=== PATIENT | female | born 1955 | race Caucasian/White ===

== ENCOUNTER 2019-07-21 13:37 | Inpatient (IN) | payer OTHER ==
[~2019-07-21 13:37] MED LIST: Iopamidol-370 76% 500 ML 1 ML ONE
[2019-07-21 14:12] LABS: #Basophils 0.1 thou/uL (0.0-0.2); #Eosinphils 0.2 thou/uL (0.0-0.7); #Lymphocytes 2.6 thou/uL (1.20-3.40); #Monocytes 0.7 thou/uL (0.11-0.59); #Neutrophils 4.2 thou/uL (1.40-6.50); %Basophils 1.3 % (0.0-1.0); %Lymphocytes 33.3 % (21.0-51.0); %Monocytes 8.7 % (0.0-10.0); %Neutrophils 53.7 % (42.0-75.0); Hemoglobin 17.8 g/dL (12.0-16.0); Mean Corpuscular HGB CONC 32.2 g/dL (32.0-36.0); Mean Corpuscular Hemoglobin 32.8 pg (27.0-31.0); Mean Platelet Volume 7.9 fL (7.4-10.4); Platelet Count 267 thou/uL (130-400); RBC Distribution Width 11.9 % (11.5-14.5); Red Blood Cell (RBC) Count 5.43 mill/uL (4.20-5.40); White Blood Cell (WBC) Count 7.8 thou/uL (4.8-10.8)
--- NOTE | 2019-07-21 14:17 | RAD ---
Exam: Chest one view HISTORY:Chest pain Comparison: None FINDINGS: Cardiac silhouette: Normal Aorta: Atherosclerosis of the aorta Pulmonary vessels: Normal Costophrenic angles: Clear LUNGS: Hyperinflation. Chronic changes. No masses or consolidation. Pneumothorax: None Osseous abnormalities: None IMPRESSION: 1. Atherosclerosis 2. Hyperinflation with chronic lung parenchymal changes.
[2019-07-21] MEDS ORDERED: Magnesium 2 GM/50 ML BAG (IN WATER) ONE (14:26)
[2019-07-21] MEDS ORDERED: methylPREDNISolone Sod Succ/PF 125 MG/2 ML VIAL ONE (14:26)
[2019-07-21 14:34] LABS: ALT (SGPT) 15 U/L (8-55); AST (SGOT) 19 U/L (5-34); Albumin 4.8 g/dL (3.4-4.8); Alkaline Phosphatase 102 U/L (40-110); Anion Gap 13 mmol/L (10-20); BUN (Urea Nitrogen) 6 mg/dL (9.8-20.1); Bilirubin, Total 0.7 mg/dL (0.2-1.2); CK (CPK) 132 U/L (29-168); Calc. Creatinine Clearance 0 mL/min (70-130); Calcium 9.8 mg/dL (7.8-10.44); Carbon Dioxide 29 mmol/L (23-31); Chloride 96 mmol/L (98-107); Estimated GFR-MDRD 82; Globulin 3.3 g/dL (2.4-3.5); Glucose 123 mg/dL (80-115); Potassium 3.9 mmol/L (3.5-5.1); Protein, Total 8.1 g/dL (6.0-8.3); Sodium 134 mmol/L (136-145)
--- NOTE | 2019-07-21 15:26 | PDOC.FPRHP ---
Addendum entered and electronically signed by Sherice Mckeon MD 07/21/19 20:07 : A/P: Lung Incidentalomas: Patient noted to have 6 & 7mm lung nodules in RUL and a possible R lower bronchial mass. on CTA of chest. Recommend repeat CT in ~3 months per radiology for close monitoring. Will inform patient of these findings prior to d/c to ensure adequate follow-up and consider pulm referral for this as well. Original Note: - History of Present Illness Chief Complaint: racing heart History of Present Illness: 63 yo F with a PMH notable for asthma vs. COPD not on O2 at home who presented to the ER per the recs of an outside facility for tachycardia noted while getting routine bloodwork ordered by her PCP. Patient reports she was told to go to the ER yesterday after the facility noted her HR was 186. However, she decided to wait until today to come to [facility] for evaluation. Reports her palpitations lasted ~20 minutes yesterday before subsiding on their own with rest but states she has had similar episodes before and has never been evaluated for it. Reports a chronic productive cough that has not been any worse recently and states her "O2 always runs low." Denied any SOB, fever/chills , mylagias, recent sick contacts, N/V/D or chest pain. No recurrent palpitations since episode yesterday. ED Course: Duonebs x2, 125 mg methylprednisolone, 2g Magnesium Sulfate, 1L NS - Allergies/Adverse Reactions Allergies Allergy/AdvReac Type Severity Reaction Status Date / Time No Known Allergies Allergy Verified 07/21/19 22:22 - Home Medications Medication Instructions Recorded Confirmed Type Albuterol Sulfate [Albuterol 0.083 mg NEB Q4HR PRN 07/21/19 07/21/19 History Sulfate Neb] Cyanocobalamin (Vitamin B-12) 500 mcg PO DAILY 07/21/19 07/21/19 History [Vitamin B-12] Levocetirizine Dihydrochloride 5 mg PO DAILY 07/21/19 07/21/19 History [Xyzal] Magnesium 200 mg PO DAILY 07/21/19 07/21/19 History Zinc 50 mg PO DAILY 07/21/19 07/21/19 History - History PMHx: COPD vs. asthma PSHx: Hysterectomy w/ bladder suspension, tonsillectomy, ex lap s/p SAB FHx: brother with a fib Social: Former tobacco use, 1 ppd for many years. Recently quit ~1 month ago and starting vaping. Denies drug use or heavy EtOH use. who lives alone in [place]. - Review of Systems General: denies: fever/chills, fatigue Eyes: denies: eye pain, vision changes ENT: reports: other (no sore throat). denies: nasal congestion Respiratory: reports: cough. denies: shortness of breath Cardiovascular: denies: chest pain, palpitation, edema Gastrointestinal: denies: nausea, vomiting, diarrhea Genitourinary: denies: incontinence, dysuria Skin: denies: rashes, itching Musculoskeletal: denies: swelling, arthritis/arthralgias Neurological: denies: syncope, weakness Psychological: denies: anxiety, depression - Vital signs BP: 130/76 Pulse: 96 Resp: 12 O2 sat: 91 on 1.5L Oxygen via NC Wt 52 kg - Physical Exam Constitutional: NAD, awake, alert and oriented, well developed HEENT: normocephalic and atraumatic, conjunctiva clear, grossly normal vision, grossly normal hearing, MMM, oropharynx clear Neck: supple, FROM Heart: RRR, normal S1/S2, no murmurs/rubs/gallops, pulses present, no edema Lungs: no respiratory distress, no retractions, other (diffuse end expiratory wheezing throughout with mild rhonchi on inspiration more prominent in upper lung valle) Abdomen: bowel sounds present, no masses/distention Musculoskeletal: normal structure, ROM grossly normal, other (digital clubbing noted in B/L hands) Neurological: no focal deficit, CN II-XII intact (grossly) Skin: no rash/lesions, good turgor Heme/Lymphatic: no unusual bruising or bleeding, no purpura, no petechia, no LAD Psychiatric: normal mood and affect, good judgment and insight, intact recent and remote memory FMR H&P: Results - Labs Result Diagrams: 07/21/19 13:55 07/21/19 13:55 Lab results: WBC 7.8 thou/uL (4.8-10.8) 07/21/19 13:55 Hgb 17.8 g/dL (12.0-16.0) H 07/21/19 13:55 Hct 55.3 % (36.0-47.0) H 07/21/19 13:55 MCV 102.0 fL (78.0-98.0) H 07/21/19 13:55 Plt Count 267 thou/uL (130-400) 07/21/19 13:55 Neutrophils % 53.7 % (42.0-75.0) 07/21/19 13:55 Sodium 134 mmol/L (136-145) L 07/21/19 13:55 Potassium 3.9 mmol/L (3.5-5.1) 07/21/19 13:55 Chloride 96 mmol/L (98-107) L 07/21/19 13:55 Carbon Dioxide 29 mmol/L (23-31) 07/21/19 13:55 BUN 6 mg/dL (9.8-20.1) L 07/21/19 13:55 Creatinine 0.72 mg/dL (0.6-1.1) 07/21/19 13:55 Glucose 123 mg/dL (80-115) H 07/21/19 13:55 Calcium 9.8 mg/dL (7.8-10.44) 07/21/19 13:55 Total Bilirubin 0.7 mg/dL (0.2-1.2) 07/21/19 13:55 AST 19 U/L (5-34) 07/21/19 13:55 ALT 15 U/L (8-55) 07/21/19 13:55 Alkaline Phosphatase 102 U/L (40-110) 07/21/19 13:55 Creatine Kinase 132 U/L (29-168) 07/21/19 13:55 Serum Total Protein 8.1 g/dL (6.0-8.3) 07/21/19 13:55 Albumin 4.8 g/dL (3.4-4.8) 07/21/19 13:55 - EKG Interpretation EKG: NSR at 96 bpm - Radiology Interpretation Chest x-ray Status: image reviewed by me, report reviewed by me (hyperinflation) Additional comment: Hyperinflation, chronic changes. No masses or consolidation. CT scan - chest Status: image reviewed by me, report reviewed by me (no PE; opacification of RLL bronchi, mass cannot be excluded; 6 & 7mm nodules in RUL; recommend repeat scan in 3 months for close monitoring) FMR H&P: A/P - Problem List (1) COPD exacerbation Current Visit: Yes Status: Acute Priority: High Code(s): J44.1 - CHRONIC OBSTRUCTIVE PULMONARY DISEASE W (ACUTE) EXACERBATION (2) Acute respiratory failure with hypoxia Current Visit: Yes Status: Acute Code(s): J96.01 - ACUTE RESPIRATORY FAILURE WITH HYPOXIA (3) Tobacco abuse Current Visit: Yes Status: Chronic Code(s): Z72.0 - TOBACCO USE (4) COPD (chronic obstructive pulmonary disease) Current Visit: Yes Status: Chronic Qualifiers: COPD type: COPD with acute exacerbation Qualified Code(s): J44.1 - Chronic obstructive pulmonary disease with (acute) exacerbation (5) Person under investigation for COVID-19 Current Visit: Yes Status: Acute Code(s): Z20.828 - CONTACT W AND EXPOSURE TO OTH VIRAL COMMUNICABLE DISEASES (6) Paroxysmal atrial fibrillation Current Visit: Yes Status: Suspected Code(s): I48.0 - PAROXYSMAL ATRIAL FIBRILLATION (7) Polycythemia Current Visit: Yes Status: Acute Code(s): D75.1 - SECONDARY POLYCYTHEMIA - Plan 63 yo F with a PMH notable for COPD admitted for acute hypoxic respiratory failure 2/2 an acute COPD exacerbation. Acute hypoxic respiratory failure 2/2 acute on chronic COPD exacerbation: - 88% room air in the ER on presentation. S/p methylprednisolone, magnesium sulfate, & duonebs & remains stable on 2L NC. - No fever, leukocytosis or focal consolidation on CXR so low suspicion for PNA as exacerbation etiology. COVID swab also pending but low suspicion for this as well as patient denies ever even being short of breath and reports her O2 always runs low and no reported or documented fever, myalgias, etc. States her cough is chronic and she denies any recent changes in sputum or cough. Procal & CRP negative. - Will therefore continue routine COPD exacerbation management with MDI equivalents of Duonebs CÉSAR q4hr & will transition to PO steroids tomorrow AM. Will wean O2 as tolerated with a goal of maintaining O2 between 89-92%. - CM consult to assist with home O2 and will get a walking O2 test in the AM as well. Supected chronic COPD: - Aware, in acute exacerbation as noted above. Needs medication optimization as only prescription from PCP is PRN albuterol via nebulizer. Would consider starting prior to d/c with referral to pulmonology as well. COVID PUI -Collected 07/20 2/2 hypoxia on presentation. Continue droplet precautions pending results Suspected paroxysmal afib: - History very suspicious for this as patient reports she has had episodes of palpitations/tachycardia previously and has a FH on afib. Never seen a exam proctor for this. Will monitor closely overnight on telemetry. TSH WNLs & Mg & phos levels pending. Troponins negative. - Would consider a cards referral upon d/c. - Lovenox for DVT PPX. Polycythemia -Hb 17, likely 2/2 longstanding COPD/tobacco use Dispo: Will admit to telemetry for close observation overnight and evaluation for need for home O2 in the AM per the patient's request. Anticipated LOS < 2 midnights pending clinical course. DVT PPX: Lovenox GI PPX: none Abx: None IVFs: NOLA PCP: Erika code: FULL RESUSCITATION FMR H&P: Upper Level - Plan Date/Time: 07/21/19 6702 I, [], have evaluated this patient and agree with findings/plan as outlined by management internship resident. Pertinent changes/additions are listed here. Addendum - Attending - Attending Attestation Date/Time: 07/21/19 4251 I discussed the management with Dr. Mckeon. I agree with the History, Examination, Assessment and Plan documented above with any addition or exceptions noted below. Patit has s COPD exascerbation and is undergoing a COVID workup. Patient is stable.
--- NOTE | 2019-07-21 15:59 | CT ---
CT PULMONARY ANGIOGRAM WITH IV CONTRAST AND 3D POSTPROCESSIN07/21/19 HISTORY: Chest pain. Palpitations. FINDINGS: There is good contrast opacification of the pulmonary artery vasculature without filling defect to gomez ggest pulmonary embolism. The thoracic aorta is well opacified without aneurysm or dissection. No pl eural or pericardial effusions are seen. Emphysematous changes are present. There are peripheral solid appearing lung nodules in the right upp er lobe measuring 7 mm and 6 mm respectively. There is subsegmental atelectatic changes in the lung l ower lobes and the right middle lobe. There is opacification in the branches of the right lower lobe bronchi. There are degenerative changes in the spine. IMPRESSION: 1. No CT evidence of pulmonary embolism. 2. Indeterminate right lung nodules. 3. Opacification in the branches of the right lower lobe bronchi. Possibility of intraluminal ma ss cannot be excluded. Further evaluation with bronchoscopy would be helpful. 4. A three month follow-up CT scan of the chest should be performed to monitor the lung nodules. Code T Code LN POS: MITA
[2019-07-21 17:23] LABS: Troponin I Less than 0.010 ng/mL (< 0.028)
[2019-07-21] MEDS ORDERED: Acetaminophen 325 MG TAB PO PRN (19:16)
[2019-07-21] MEDS ORDERED: Ondansetron PF 4 MG/2 ML Vial IVP PRN (19:16)
[2019-07-21] MEDS ORDERED: Ondansetron ODT 4 MG TAB SL PRN (19:16)
[2019-07-21] MEDS ORDERED: Ondansetron ODT 4 MG TAB PO PRN (19:29)
[2019-07-21] MEDS ORDERED: Ipratropium Oral Inhaler INH SCH (20:00)
[2019-07-21] MEDS: guaiFENesin/DM ER PO SCH (20:07)
[2019-07-21] MEDS: Enoxaparin Sodium 40 MG/0.4 ML SYRINGE SC SCH (20:07)
[2019-07-21] MEDS: Acetaminophen 500 MG TAB PO PRN (20:07)
[2019-07-21 21:43] LABS: Magnesium 2.2 mg/dL (1.6-2.6); Phosphorus 3.9 mg/dL (2.3-4.7)
[2019-07-21] MEDS: Albuterol 200 PUFF (6.7GM INHALER) INH SCH (22:23)
[2019-07-21 23:16] VITALS: BMI 24.6
[2019-07-22] MEDS: Acetaminophen 500 MG TAB PO PRN ×2 (03:48→17:40)
[2019-07-22] MEDS: Albuterol 200 PUFF (6.7GM INHALER) INH SCH ×6 (03:50→21:40)
[2019-07-22 04:42] LABS: #Monocytes 0.3 thou/uL (0.11-0.59); #Neutrophils 3.9 thou/uL (1.40-6.50); %Basophils 0.5 % (0.0-1.0); %Eosinophils 0.1 % (0.0-10.0); %Lymphocytes 19.2 % (21.0-51.0); %Monocytes 5.2 % (0.0-10.0); Hemoglobin 15.4 g/dL (12.0-16.0); Mean Corpuscular HGB CONC 31.4 g/dL (32.0-36.0); Mean Platelet Volume 8.1 fL (7.4-10.4); Platelet Count 253 thou/uL (130-400); RBC Distribution Width 11.8 % (11.5-14.5); White Blood Cell (WBC) Count 5.2 thou/uL (4.8-10.8)
--- NOTE | 2019-07-22 07:32 | PDOC.FM ---
- Subjective Subjective: Patient breathing much improved. Had meterman discussion of cessation of vaping. She feels ready to go home once she can get qualified for O2. Still coughing, but no chest pain. No fevers or chills. Tele monitoring showed 40 second episode of MAT while patient was coughing. Pt reports longstanding history of these episodes. - Objective Vital Signs & Weight: Vital Signs (12 hours) Temp Pulse Resp BP Pulse Ox 07/22/19 03:48 80 20 106/67 92 L 07/22/19 00:30 98.1 F 77 20 100/57 L 94 L Weight Weight 63.095 kg Result Diagrams: 07/22/19 04:18 07/21/19 13:55 Phys Exam - Physical Examination Constitutional: NAD resting comfortably on nasal cannula HEENT: PERRLA, sclera anicteric end expiratory wheezing (mild) Cardiovascular: RRR, no significant murmur Gastrointestinal: soft, non-tender Neurological: non-focal, moves all 4 limbs Psychiatric: normal affect, A&O x 3 Dx/Plan (1) Acute respiratory failure with hypoxia Code(s): J96.01 - ACUTE RESPIRATORY FAILURE WITH HYPOXIA Status: Acute (2) Tobacco abuse Code(s): Z72.0 - TOBACCO USE Status: Chronic (3) COPD (chronic obstructive pulmonary disease) Status: Chronic Qualifiers: COPD type: COPD with acute exacerbation Qualified Code(s): J44.1 - Chronic obstructive pulmonary disease with (acute) exacerbation (4) Person under investigation for COVID-19 Code(s): Z20.828 - CONTACT W AND EXPOSURE TO OTH VIRAL COMMUNICABLE DISEASES Status: Acute (5) COPD exacerbation Code(s): J44.1 - CHRONIC OBSTRUCTIVE PULMONARY DISEASE W (ACUTE) EXACERBATION Status: Acute - Plan Plan: 63 yo F with a PMH notable for COPD admitted for acute hypoxic respiratory failure 2/2 an acute COPD exacerbation. Acute hypoxic respiratory failure 2/2 acute on chronic COPD exacerbation: - 88% room air in the ER on presentation. S/p methylprednisolone, magnesium sulfate, & duonebs & remains stable on 2L NC. - Duonebs, steroids, supplemental O2 with a goal of maintaining O2 between 89-92 %. - CM consult to assist with home O2 and will get a walking O2 test today Supected chronic COPD: -Pulm followup outpatient MAT -40 second episode in 140s during coughing fit -Will discuss starting BB -Cardiology OP f/u Pulmonary nodules -6&7 mm RUL nodules & possible RLL bronchial mass -Discussed with patient importance of pulm follow up OP COVID PUI -Collected 07/20 2/2 hypoxia on presentation. Continue droplet precautions pending results Suspected paroxysmal afib: - History very suspicious for this as patient reports she has had episodes of palpitations/tachycardia previously and has a FH on afib. Never seen a jockey agent for this. Will monitor closely overnight on telemetry. TSH WNLs & Mg & phos levels pending. Troponins negative. - Would consider a cards referral upon d/c. - Lovenox for DVT PPX. Secondary polycythemia -Hb 17, likely 2/2 longstanding COPD/tobacco use Dispo: <2 midnights DVT PPX: Lovenox GI PPX: none Abx: None IVFs: SL PCP: Erika code: FULL RESUSCITATION Addendum - Attending - Attending Attestation Date/Time: 07/22/19 8986 I personally evaluated the patient and discussed the management with Dr. Sanchez. I agree with the History, Examination, Assessment and Plan documented above with any addition or exceptions noted below. Patient COVID negative. Here for COPD exacerbation with hypoxia. Wean O2 as tolerated, continue nebs and steroids. Work on improving baseline COPD control. The questionable obstruction on her CTA in bronchus likely represents mucous plugging as also confirmed by Pulm.
[2019-07-22] MEDS: guaiFENesin/DM ER PO SCH ×2 (08:30→21:50)
[2019-07-22] MEDS: predniSONE 20 MG TAB PO SCH (08:31)
[2019-07-22] MEDS: Mometasone 200 MCG/Formoterol 5 MCG 120 PUFF INHALER INH SCH ×2 (08:39→17:41)
[2019-07-22 11:31] LABS: SARS-CoV-2 MS2 Positive; SARS-CoV-2 N Gene Negative; SARS-CoV-2 S Gene Negative; SARS-CoV-2 orf1ab Negative
--- NOTE | 2019-07-22 14:26 | EKG ---
Test Reason : PALPITATIONS Blood Pressure : / mmHG Vent. Rate : 093 BPM Atrial Rate : 093 BPM P-R Int : 112 ms QRS Dur : 084 ms QT Int : 350 ms P-R-T Axes : 082 097 051 degrees QTc Int : 435 ms Normal sinus rhythm Rightward axis Pulmonary disease pattern Abnormal ECG Confirmed by MISSAEL GARCIA DO ([id number]), loan expeditor DOLORES LEWIS ([id number]) on 07/22/2019 2:25:28 PM Referred By: RADHA Confirmed By:MISSAEL GARCIA DO
--- NOTE | 2019-07-22 17:04 | CON ---
DATE OF CONSULTATION: 07/22/2019 REASON FOR CONSULTATION: MAT and 4-second pause. HISTORY OF PRESENT ILLNESS: Ms. Lopez is a pleasant 63-year-old white female, who comes to the hospital for tachycardia. She was giving blood and was found to have a heart rate in the 180s, so her PCP was called, and he recommended she come to the ER. She actually came in to the next day. She was found to be reported chronic productive cough and low O2 saturations, so she was admitted for further evaluation and care. She was in sinus rhythm on her arrival. During her hospitalization, she has been monitored and was found to have a run of multifocal atrial tachycardia. This was very clear, several different P-wave morphologies on her monitor. That lasted for about 40 seconds. During her time, she also had an episode where she was coughing, and after she coughed, she had a 4.2-second complete AV block with no escape rhythm. She does not remember passing out. This was about 9 this morning. She does not remember passing out. She just remembers coughing vigorously. Cardiology is being consulted for this. PAST MEDICAL HISTORY: COPD/asthma. PAST SURGICAL HISTORY: 1. Hysterectomy with bladder suspension. 2. Tonsillectomy. 3. Exploratory laparotomy, status post SAB. OUTPATIENT MEDICATIONS: 1. Albuterol inhaler. 2. Vitamin B12. 3. Levocetirizine. 4. Magnesium. 5. Zinc. ALLERGIES: NO KNOWN DRUG ALLERGIES. FAMILY HISTORY: Brother with atrial fibrillation. SOCIAL HISTORY: Quit smoking a month ago, one pack per day in the past. She started vaping since she quit smoking. No drug use. No alcohol use. She lives alone in [place]. REVIEW OF SYSTEMS: A 12-point review of systems was done and was all negative unless stated in the History of Present Illness. PHYSICAL EXAMINATION: VITAL SIGNS: Temperature 98.1, pulse 88, respiratory rate 20, saturating 98% on 3 L nasal cannula, and blood pressure 120/61. GENERAL: Awake, alert, and oriented x3. No distress. HEENT: Normocephalic, atraumatic. NECK: Supple. LUNGS: Have reduced breath sounds bilaterally. CARDIOVASCULAR: S1 and S2. No S3 or S4. Very soft grade 2/6 systolic murmur at the right upper sternal border. ABDOMEN: Soft. Positive bowel sounds. EXTREMITIES: No edema. SKIN: Warm and dry. LABORATORY DATA: Laboratory work was reviewed. White count of 7, hemoglobin of 17, hematocrit 55, platelet count of 267. Chemistry was unremarkable. Sodium 134, potassium was 3.9, chloride of 96, carbon dioxide of 29, anion gap of 13, BUN of 6, creatinine 0.72, GFR of 82. Troponin was negative x2. CRP was undetectable. Procalcitonin was less than assay limit, and TSH was normal. COVID-[address] detected[address] of the chest was reviewed. Some lung nodules and possible masses there. Just recommended to follow up. ASSESSMENT: 1. Chronic obstructive pulmonary disease, most likely will need oxygen on discharge. Primary team already working on this. 2. Multifocal atrial tachycardia. 3. High-degree atrioventricular block. PLAN: 1. Certainly, most likely, she has some level tachy-isiah syndrome. She is at risk of syncope and severe injury because of her pauses. This happened when she coughs, she coughs quite a lot. She has never passed out. However, I think she is at risk of this and would benefit from having a pacemaker placed. I spoke with Ms. Lopez about this and she agrees to proceed. She would like to have this done as soon as possible. 2. Once the pacemaker is in place, we may start AV andrea blocking agent, most likely calcium channel amira to try to get her a multifocal atrial tachycardia to calm down some. Thank you for letting us to participate in the care of your patient. We will follow. Job ID: [id number]
[2019-07-22] MEDS: hydrOXYzine 10 MG TAB PO SCH (21:50)
[2019-07-22] MEDS: Enoxaparin Sodium 40 MG/0.4 ML SYRINGE SC SCH (21:50)
[2019-07-22] MEDS ORDERED: CEFAZOLIN 2 GM in Premix Bag 1 BAG IVPB SCH (22:30)
[2019-07-23] MEDS: Albuterol 200 PUFF (6.7GM INHALER) INH SCH ×5 (02:11→19:05)
--- NOTE | 2019-07-23 07:05 | PDOC.FM ---
- Subjective Subjective: NAEO. Denies palpitations. Resting comfortably on 1L. Breathing much improved. Plan for PM placement today - Objective MAR Reviewed: Yes Vital Signs & Weight: Vital Signs (12 hours) Temp Pulse Resp BP BP Pulse Ox 07/23/19 03:10 97.9 F 67 18 93/51 L 86 L 07/23/19 00:54 93 L 07/23/19 00:27 98.3 F 83 20 106/55 L 93 L 07/23/19 00:00 86 L 07/22/19 20:00 90 L 07/22/19 19:47 98.7 F 78 16 115/64 90 L Weight Weight 63.095 kg I&O: 07/22/19 07/23/19 07/24/19 06:59 06:59 06:59 Intake Total 1224 Balance 1224 Result Diagrams: 07/22/19 04:18 07/21/19 13:55 Phys Exam - Physical Examination Constitutional: NAD HEENT: PERRLA Respiratory: no wheezing dec breath sounds at bases Cardiovascular: RRR, no significant murmur Neurological: non-focal, moves all 4 limbs Psychiatric: normal affect, A&O x 3 Dx/Plan (1) Acute respiratory failure with hypoxia Code(s): J96.01 - ACUTE RESPIRATORY FAILURE WITH HYPOXIA Status: Acute (2) Tobacco abuse Code(s): Z72.0 - TOBACCO USE Status: Chronic (3) COPD (chronic obstructive pulmonary disease) Status: Chronic Qualifiers: COPD type: COPD with acute exacerbation Qualified Code(s): J44.1 - Chronic obstructive pulmonary disease with (acute) exacerbation (4) Person under investigation for COVID-19 Code(s): Z20.828 - CONTACT W AND EXPOSURE TO OTH VIRAL COMMUNICABLE DISEASES Status: Acute (5) COPD exacerbation Code(s): J44.1 - CHRONIC OBSTRUCTIVE PULMONARY DISEASE W (ACUTE) EXACERBATION Status: Acute - Plan Plan: 63 yo F with a PMH notable for COPD admitted for acute hypoxic respiratory failure 2/2 an acute COPD exacerbation. Acute hypoxic respiratory failure 2/2 acute on chronic COPD exacerbation: - 88% room air in the ER on presentation. S/p methylprednisolone, magnesium sulfate, & duonebs & remains stable on 0.5L NC - Duonebs, steroids, supplemental O2 with a goal of maintaining O2 between 89-92 %. - CM consult to assist with home O2 if needed on discharge. Likely patient may not need it but can have available since wants to leave today Supected chronic COPD, Gold's Class C -Pulm followup outpatient -Will d/c with LABA/ICS and short acting bronchodilators MAT & Ventricular pause -40 second episode in 140s during coughing fit -4.2 second ventricular pause -Plan for pacemaker today -Cardiology on board Pulmonary nodules -6&7 mm RUL nodules & possible RLL bronchial mass -Outpt f/u CT non con required 1 month from now COVID PUI-negative Secondary polycythemia -Hb 17, likely 2/2 longstanding COPD/tobacco use Dispo: <2 midnights DVT PPX: Lovenox GI PPX: none Abx: None IVFs: SL PCP: Erika code: FULL RESUSCITATION Plan for d/c today after PM placement pending clinical status Addendum - Attending - Attending Attestation Date/Time: 07/23/19 8583 I personally evaluated the patient and discussed the management with Dr. Sanchez. I agree with the History, Examination, Assessment and Plan documented above with any addition or exceptions noted below. Patient doing well. Awaiting pacemaker for high grade AV block this afternoon. She is also still hypoxic and needs O2 on discharge likely. However, the patient is in a hurry to get out of the hospital and is not wanting to stay long enough for us to treat her adequately and wean from O2 if that is a possibility.
[2019-07-23] MEDS: Mometasone 200 MCG/Formoterol 5 MCG 120 PUFF INHALER INH SCH ×2 (07:55→19:06)
[2019-07-23] MEDS: guaiFENesin/DM ER PO SCH ×2 (10:02→21:21)
[2019-07-23] MEDS: predniSONE 20 MG TAB PO SCH (10:03)
[2019-07-23] MEDS ORDERED: Gentamicin 80 MG/2 ML VIAL ONE (15:27)
[2019-07-23] MEDS ORDERED: CEFAZOLIN 1 GM VIAL ONE (15:27)
[2019-07-23] MEDS ORDERED: Midazolam HCl 2 mg/2 ml Vial ONE (16:09)
[2019-07-23] MEDS ORDERED: Lidocaine 1% (PF) 30 ML VIAL ONE (16:23)
[2019-07-23] MEDS ORDERED: Acetaminophen/Codeine 30-300mg Tablet PO PRN (17:26)
[2019-07-23] MEDS ORDERED: Metoprolol Tartrate 25 MG TAB PO SCH (17:30)
--- NOTE | 2019-07-23 17:51 | RAD ---
PORTABLE CHEST ONE VIEW: 07/23/19 at 5:40 p.m. HISTORY: Cardiac device placed. COMPARISON: 07/21/19. FINDINGS: There has been interval placement of a left sided pacemaker device with bipolar leads in the right at rium and the right ventricle. The heart size is normal. The lungs are expanded without lobar consolid ation, pneumothoraces, or pleural effusions. IMPRESSION: No acute process. POS: PETEY
[2019-07-23] MEDS: Acetaminophen 500 MG TAB PO PRN (19:48)
[2019-07-23 19:54] VITALS: BP 128/75; TEMP 98.2
--- NOTE | 2019-07-23 21:14 | PDOC.BPN ---
- Brief Progress Note Per primary day team, patient medically cleared for discharge after 4h observation (21:30 07/23/19) post pacemaker per Cardiology and patient medically cleared from our standpoint pending home oxygen. Patient is very dissatisfied with her care and very upset that her oxygen is holding her up from discharge. [employer] delivered portable O2 this evening to her hospital room and second tank scheduled to be set up at her home at 0800 07/24/2019. After reviewing home O2 order, walking trials, previous vital signs, and speaking with nurse it is confirmed that the patient needs intermittent oxygen during the day with any amount of exertion and continuous at night. Patient is adamant about leaving the hospital, however the portable oxygen tank is not made for overnight use according to [employer]. When talking with [employer] about logistics in getting her set up, they graciously offered to set up home oxygen tonight. I spoke with Ina Arroyo at [phone] and she confirmed that the patient was to give them a call at that number and she will contact the bellman driver for delivery tonight to meet her at her house. She did say that the patient can defer delivery until tomorrow if she wants, however I advised the patient against this as she does need oxygen at night and as stated above, the portable oxygen is not sufficient for night use per the company. The patient is agreeable to discharge tonight after her observation period with appropriate follow-up and has the number to call at discharge for home oxygen delivery tonight. Relayed this to patients nurse and attending physician, Dr. Gomez, who is also in agreement with plan.
[2019-07-23] MEDS: hydrOXYzine 10 MG TAB PO SCH (21:21)
[2019-07-23] MEDS: Enoxaparin Sodium 40 MG/0.4 ML SYRINGE SC SCH (21:21)
[2019-07-24] MEDS ORDERED: Metoprolol Tartrate 25 MG TAB PO SCH (09:00)
--- NOTE | 2019-07-25 10:37 | DIS ---
DATE OF ADMISSION: 07/21/2019 DATE OF DISCHARGE: 07/23/2019 ADMITTING ATTENDING: Travis Gomez MD DISCHARGE ATTENDING: Jose Kitchen MD RESIDENT: Anktia Sanchez, PGY-2 CONSULTS: 1. Cardiac rehab. 2. Cardiology: Dr. Aquino. PROCEDURES AND IMAGIN. Transthoracic echo, ejection fraction 50% to 55%. Grade 1/3 diastolic dysfunction. 2. Aortic valve sclerosis, opens well. 3. Right ventricular systolic pressure 35 mmHg. 4. Chest thorax CTA: Indeterminate right lung nodules. Opacification of the right lower lobe bronchi. Possibility of intraluminal mass cannot be excluded. 5. Chest x-ray. Atherosclerosis. Hyperinflation, chronic lung parenchymal changes. PRIMARY DIAGNOSES: 1. Acute hypoxic respiratory failure secondary to acute on chronic obstructive pulmonary disease exacerbation. 2. Unofficially diagnosed chronic obstructive pulmonary disease, GOLD class C. 3. Multifocal atrial tachycardia and ventricular pause. High-degree atrioventricular block, status post pacemaker placement. 4. Pulmonary nodules. 5. COVID PUI, COVID negative. 6. Secondary polycythemia. SECONDARY DIAGNOSES: 1. Acute hypoxic respiratory failure secondary to acute on chronic obstructive pulmonary disease exacerbation. 2. Unofficially diagnosed chronic obstructive pulmonary disease, GOLD class C. 3. Multifocal atrial tachycardia and ventricular pause. High-degree atrioventricular block, status post pacemaker placement. 4. Pulmonary nodules. 5. COVID PUI, COVID negative. 6. Secondary polycythemia. HISTORY OF PRESENT ILLNESS/HOSPITAL COURSE: Ms. Aylin Lopez is a 63-year-old female with COPD, who presented to the ER for evaluation of tachycardia. She was actually found to be in acute COPD exacerbation and hypoxic requiring supplemental oxygen. She was admitted and treated with steroids and breathing treatments. She improved from a respiratory point of view, but did require home O2 upon discharge. Her home medications were optimized to match her GOLD class category. She was encouraged to quit smoking and vaping to prevent further exacerbation. During the hospitalization, patient had 40 beats of multifocal atrial tachycardia and a high-degree AV block. Cardiology was consulted and subsequent transcutaneous pacemaker was placed. These abnormal rhythms were thought to be secondary to her uncontrolled COPD. Her CTA showed incidental findings of lung nodules in which the patient was aware of. It was recommended to repeat this in outpatient setting three months from now. In regard to the intraluminal plugging seen, could potentially be a mass, it was discussed with Dr. Funez, who says this is likely mucous plugging from COPD exacerbation and to repeat a noncontrast CT chest in one month to ensure resolution. Patient was wanting to leave despite oxygen not being ready and so calls were made in order to ensure her oxygen will be delivered at home. Patient understood risks upon being discharged without having the oxygen ready and present and our concern with her needing it, but she was pretty insistent on leaving, so we discussed precautions with her. DISPOSITION: Stable. DISCHARGE INSTRUCTIONS: 1. Location: Home. 2. Diet: Regular diet. 3. Activity: Ad octaviano as tolerated. 4. Followup: Patient will follow up with Dr. James in 1 to 2 days. 5. Follow up to ensure you receive your home oxygen. 6. You should follow up for noncontrast CT chest to ensure resolution of intraluminal mass. 7. Overall need another followup CT chest in about three months or at the PCP's discretion to assess the incidental lung . Job ID: [id number]
--- NOTE | 2019-07-26 19:45 | CCL ---
DATE OF PROCEDURE: 07/23/19 INDICATION: This is a 63-year-old female with sick sinus syndrome with bradycardia and also episodes of tachycard ia. She was advised to undergo dural chamber pacemaker insertion. She was taken to the cardiac cath l ab where she underwent the procedure without difficulties or complications. A full dictated note can be found in the chart. Pacemaker was set with the upper rate at 130 and the lower rate was set at 60. This is a [employer] MRI compatible device, an [employer]visa dual chamber pacemaker. There were two screw in leads, one in the atrium and one in the ventricle. No complications or difficulties were encountered . The patient was given 2 mg of IV versed for conscious sedation. Total sedation time was 39 minutes.
== END 2019-07-23 21:47 | disposition home or self-care (01) | DRG 242 ==
LOC: ERS 13:37 → 2SW 15:15 → INTOOBSV 15:15 → OBSVTOIN 15:15
PROVIDERS: ADMIT Student in an Organized Health Care Education/Training Program; ATTEND Student in an Organized Health Care Education/Training Program
PROC: 0JH606Z Insertion of Pacemaker, Dual Chamber into Chest Subcutaneous Tissue and Fascia, Open Approach (ICD-10-PCS; principal; 2019-07-23)
PROC: 02H63JZ Insertion of Pacemaker Lead into Right Atrium, Percutaneous Approach (ICD-10-PCS; 2019-07-23)
PROC: 02HK3JZ Insertion of Pacemaker Lead into Right Ventricle, Percutaneous Approach (ICD-10-PCS; 2019-07-23)
DX: I44.2 Atrioventricular block, complete (principal); J96.01 Acute respiratory failure with hypoxia; J44.1 Chronic obstructive pulmonary disease with (acute) exacerbation; I48.0 Paroxysmal atrial fibrillation; Z20.828 Contact with and (suspected) exposure to other viral communicable diseases; D75.1 Secondary polycythemia; R91.1 Solitary pulmonary nodule; F17.290 Nicotine dependence, other tobacco product, uncomplicated; Z90.710 Acquired absence of both cervix and uterus; Z79.51 Long term (current) use of inhaled steroids; Z79.899 Other long term (current) drug therapy
CPT/HCPCS: 33208; 36415; 71045; 71275; 80053; 82550; 82607; 82746; 83735; 84100; 84145; 84443; 84484; 85025; 86140; 87635; 93005; 93306; 94640; 96361; 96365; 96375; 99152; 99153; C1785; C1898; J0690; J1580; J1650; J2001; J2250; J2930; J3475; J7512; J7620; Q9967; U0002